=== PATIENT | female | born 1935 | race Caucasian/White ===

== ENCOUNTER 2019-10-29 00:47 | Inpatient (IN) | payer MEDICARE, OTHER ==
[~2019-10-29] VITALS: Ht 160 cm; Wt 57.6 kg
[~2019-10-29 00:47] MED LIST: ASPIRIN CHEWABL81 MG PO; ATIVAN0.5 MG PO; CALCIUM + VITA1 EAC1 PO; DEPAKOTE SPRIN125 MG PO; LEXAPRO20 MG PO; LISINOPRIL20 MG PO; MELATONIN5 M1 PO; MELOXICAM15 MG PO; NAMENDA5 M1 PO; QUESTRAN POWDE378 GM PO; SEROQUEL25 MG PO; TYLENOL325 M1 PO
[2019-10-29 01:00] VITALS: BP 153/73
[2019-10-29 07:43] VITALS: BP 150/87
[2019-10-29 11:02] LABS: BASO # 0.1 10*3/uL (0.0-0.1); BASO % 0.8 % (0.0-1.0); EOS % 0.3 % (1.0-4.0); HEMATOCRIT 39.6 % (37.0-47.0); LYMPH # 1.5 10*3/uL (1.3-4.4); LYMPH % 16.3 % (27.0-41.0); MEAN CELL VOLUME 94.1 fl (81.0-99.0); MEAN CORPUSCULAR HGB 30.2 pg (27.0-31.0); MEAN CORPUSCULAR HGB CONC 32.1 g/dl (33.0-37.0); MEAN PLATELET VOLUME 10.6 fl (9.6-12.3); MONO # 0.9 10*3/uL (0.1-1.0); MONO % 10.5 % (3.0-9.0); NEUT # 6.4 10*3/uL (2.3-7.9); NEUT % 71.8 % (47.0-73.0); PLATELET COUNT AUTOMATED 235 10*3/uL (130-400); RED BLOOD COUNT 4.21 10*6/uL (4.10-5.10); RED CELL DISTRI WIDTH 13.8 % (0-14.5); WHITE BLOOD COUNT 8.9 10*3/uL (4.8-10.8)
[2019-10-29 11:29] LABS: ALBUMIN 3.4 gm/dl (3.1-4.5); ALKALINE PHOSPHATASE 71 U/L (45-117); CHLORIDE 105 mmol/L (98-107); CHOLESTEROL 210 mg/dL (<200); CREATININE 0.84 mg/dL (0.55-1.02); HDL CHOLESTEROL 73 mg/dl (40-60); LDL CHOLESTEROL 115 mg/dL (9-159); POTASSIUM 3.9 mmol/L (3.5-5.1); SGOT/AST 24 IU/L (3-35); SGPT/ALT 17 U/L (12-78); SODIUM 139 mmol/L (136-145); TOTAL PROTEIN 7.6 gm/dL (6.4-8.2); TRIGLYCERIDES 109 mg/dl (<150); VLDL CHOLESTEROL 22 mg/dL (6-40)
[2019-10-29 11:30] LABS: BUN 15 mg/dl (7-24)
[2019-10-29 12:27] LABS: VITAMIN D, 25-HYDROXY 19.8 ng/mL (30-100)
[2019-10-29 20:00] VITALS: BP 112/61
[2019-10-30 07:49] VITALS: BP 121/67
[2019-10-30 19:05] VITALS: BP 111/62
[2019-10-31 07:42] VITALS: BP 130/73
[2019-10-31 20:00] VITALS: BP 102/62
[2019-11-01 07:32] VITALS: BP 129/64
[2019-11-01 20:00] VITALS: BP 131/68
[2019-11-02 08:00] VITALS: BP 136/89
[2019-11-02 19:26] VITALS: BP 127/63
[2019-11-03 07:46] VITALS: BP 118/68
[2019-11-03 20:00] VITALS: BP 101/57
[2019-11-04 06:55] VITALS: BP 112/57
[2019-11-04 20:00] VITALS: BP 153/70
[2019-11-05 07:50] VITALS: BP 131/67
[2019-11-05 19:38] VITALS: BP 147/62
[2019-11-06 07:57] VITALS: BP 138/82
[2019-11-06 19:05] VITALS: BP 148/84
[2019-11-07 07:45] VITALS: BP 130/73
[2019-11-07 19:58] VITALS: BP 136/70
[2019-11-08 07:55] VITALS: BP 145/70
[2019-11-08 20:00] VITALS: BP 123/73
[2019-11-09 07:51] VITALS: BP 116/64
[2019-11-09 19:32] VITALS: BP 114/69
[2019-11-10 07:48] VITALS: BP 140/77
[2019-11-10 20:00] VITALS: BP 131/66
[2019-11-11 08:00] VITALS: BP 120/74
[2019-11-11 20:00] VITALS: BP 132/88
[2019-11-12 04:44] LABS: BILIRUBIN Negative; BLOOD 1+ (NEGATIVE); CLARITY Clear (CLEAR); COLOR Yellow (YELLOW); GLUCOSE Negative; KETONE Trace
[2019-11-12 04:45] LABS: LEUKO ESTERASE Negative (NEGATIVE); NITRITE Negative (NEGATIVE); UROBILINOGEN 0.2 E.U./dl (0.0-1.0)
[2019-11-12 04:47] LABS: EPITHELIAL CELLS 0-2; RBC 21-30 rbc/hpf (0-2); WBC 0-2 wbc/hpf (0-5)
[2019-11-12 06:40] LABS: ALBUMIN 3.4 gm/dl (3.1-4.5); ALKALINE PHOSPHATASE 89 U/L (45-117); BUN 17 mg/dl (7-24); CHLORIDE 108 mmol/L (98-107); CREATININE 0.89 mg/dL (0.55-1.02); POTASSIUM 4.9 mmol/L (3.5-5.1); SGOT/AST 25 IU/L (3-35); SGPT/ALT 20 U/L (12-78); SODIUM 141 mmol/L (136-145); TOTAL PROTEIN 7.9 gm/dL (6.4-8.2)
[2019-11-12 07:20] VITALS: BP 122/62
[2019-11-12 20:00] VITALS: BP 126/70
[2019-11-13 08:00] VITALS: BP 138/82
[2019-11-13 20:00] VITALS: BP 157/85
[2019-11-14 07:53] VITALS: BP 142/87
[2019-11-14 19:42] VITALS: BP 132/64
[2019-11-15 07:43] VITALS: BP 142/81
[2019-11-15] MEDS ORDERED: ZIPRASIDONE HCL20 M1 PO (10:13)
[2019-11-15] MEDS ORDERED: ZIPRASIDONE HCL60 M1 PO (10:13)
[2019-11-15] MEDS ORDERED: RIVASTIGMINE1 EAC2 T (10:13)
[2019-11-15] MEDS ORDERED: MEMANTINE HCL10 MG PO (10:13)
[2019-11-15] MEDS ORDERED: ROZEREM8 MG PO (10:13)
[2019-11-15] MEDS ORDERED: VITAMIN D3125 MC1 PO (10:13)
[2019-11-15] MEDS ORDERED: ZIPRASIDONE HCL80 M1 PO (10:13)
== END 2019-11-15 16:08 | DRG 885 ==
LOC: 3N 00:47
PROVIDERS: Nurse Practitioner Women's Health; ADMIT Psychiatry & Neurology Psychiatry; ATTEND Psychiatry & Neurology Psychiatry
DX: F23 Brief psychotic disorder (principal); F02.81 Dementia in other diseases classified elsewhere, unspecified severity, with behavioral disturbance; N30.01 Acute cystitis with hematuria; D64.9 Anemia, unspecified; G30.9 Alzheimer's disease, unspecified; L85.9 Epidermal thickening, unspecified; Z20.828 Contact with and (suspected) exposure to other viral communicable diseases; R73.9 Hyperglycemia, unspecified; K58.2 Mixed irritable bowel syndrome; I10 Essential (primary) hypertension; M15.9 Polyosteoarthritis, unspecified; Z88.2 Allergy status to sulfonamides; Z79.899 Other long term (current) drug therapy; Z79.82 Long term (current) use of aspirin